=== PATIENT | female | born 1990 | race Two or more races ===

== ENCOUNTER 2019-04-20 21:40 | Emergency (ER) | payer OTHER ==
[2019-04-20 21:51] VITALS: BP 141/94
[2019-04-21] MEDS ORDERED: IBUPROFEN 600 MG TABLET PO ONE (00:20)
[2019-04-21] MEDS ORDERED: DIPH/PERTUSS(ACELL)/TETANUS VAC/PF 0.5 ML SYR (>=10YO) IM ONE (00:21)
[2019-04-21] MEDS ORDERED: ONDANSETRON 4 MG TAB.RAPDIS PO ONE (00:22)
--- NOTE | 2019-04-21 00:23 | ER Document Report ---
ED Medical Screen (RME) - General Chief Complaint: Laceration Stated Complaint: CUTS ON FOOT Time Seen by Provider: 04/21/19 00:10 Notes: Patient is a 28-year-old female who presents to the emergency department with a chief complaint of lacerations to the foot. Patient states that earlier tonight out of anger she kicked a empty fish tank that was on the floor. Patient states that this take did break causing multiple lacerations on the right foot. Patient states her tetanus shot is not up-to-date. TRAVEL OUTSIDE OF THE [place] IN LAST 30 DAYS: No Physical Exam - Vital signs Vitals: Temp Pulse Resp BP Pulse Ox 98.6 F 103 H 20 141/94 H 99 04/20/19 21:49 04/20/19 21:49 04/20/19 21:49 04/20/19 21:49 04/20/19 21:49 - Extremities Notes: 3 lacerations noted to the dorsal aspect of the right foot as well as the laceration to the lateral side of the foot. There is no active bleeding. The lacerations appear to be jagged and irregular. Course - Re-evaluation Re-evalutation: 04/21/19 00:23 Patient will require wound care and laceration repair. I have ordered an x-ray to rule out foreign body. I have greeted and performed a rapid initial assessment of this patient. A comprehensive ED assessment and evaluation of the patient, analysis of test results and completion of the medical decision making process will be conducted by additional ED providers. - Vital Signs Vital signs: Temp Pulse Resp BP Pulse Ox 98.6 F 103 H 20 141/94 H 99 04/20/19 21:49 04/20/19 21:49 04/20/19 21:49 04/20/19 21:49 04/20/19 21:49
--- NOTE | 2019-04-21 01:03 | RADIOLOGY REPORT (SQ) ---
EXAM DESCRIPTION: Right foot [facility]: XR FOOT 3 OR MORE VIEWS Views: 3 CLINICAL HISTORY: 28 years Female, r/o foreign body, kicked glass fish tank, + lacs COMPARISON: None. FINDINGS: External material somewhat obscures visualization. There are several possible foreign bodies on the oblique view and AP view, but these are not identified on the lateral view. Overall alignment is anatomic. No acute displaced fractures. On one view, there is questionable fracture at the dorsal medial margin of the 1st tarsal metatarsal joint, although this may be overlying material. IMPRESSION: 1. There are several potential foreign bodies, in or over the dorsal medial soft tissues. Consider repeat radiographs without the bandage material.
[2019-04-21] MEDS ORDERED: LIDOCAINE 1%/EPINEPHRINE INJ 20 ML VIAL INJ ONE (02:42)
[2019-04-21] MEDS ORDERED: DOXYCYCLINE HYCLATE 100 MG TABLET PO ONE (02:44)
--- NOTE | 2019-04-21 02:47 | ER Document Report ---
ED Wound - General Chief Complaint: Laceration Stated Complaint: CUTS ON FOOT Time Seen by Provider: 04/21/19 00:10 Primary Care Provider: SHIVAM GONZALEZ DO [Primary Care Provider] - Follow up as needed Notes: Patient is a 28-year-old female that comes to the emergency department for chief complaint of laceration to the right foot. She states that she became angry and kicked a fish tank, the tank shattered and she sustained lacerations to the top and side of the foot from the glass. Her tetanus is not up-to-date. She denies any other injuries or complaints. She drove herself here. She denies any daily medications or diagnosed medical history. She denies . TRAVEL OUTSIDE OF THE [place] IN LAST 30 DAYS: No - Related Data Allergies/Adverse Reactions: No Known Allergies Allergy (Unverified 04/21/19 00:22) Past Medical History - General Information source: Patient - Social History Smoking Status: Never Smoker Frequency of alcohol use: Social Drug Abuse: None Lives with: Family Family History: Reviewed & Not Pertinent Patient has suicidal ideation: No Patient has homicidal ideation: No Renal/ Medical History: Denies: Hx Peritoneal Dialysis - Immunizations Immunizations up to date: No Hx Diphtheria, Pertussis, Tetanus Vaccination: Yes Review of Systems - Review of Systems Constitutional: No symptoms reported EENT: No symptoms reported Cardiovascular: No symptoms reported Respiratory: No symptoms reported Gastrointestinal: No symptoms reported Genitourinary: No symptoms reported Female Genitourinary: No symptoms reported Musculoskeletal: See HPI Skin: See HPI Hematologic/Lymphatic: No symptoms reported Neurological/Psychological: No symptoms reported Physical Exam - Vital signs Vitals: Temp Pulse Resp BP Pulse Ox 98.6 F 103 H 20 141/94 H 99 04/20/19 21:49 04/20/19 21:49 04/20/19 21:49 04/20/19 21:49 04/20/19 21:49 - Notes Notes: GENERAL: Alert, interacts well. No acute distress. HEAD: Normocephalic, atraumatic. EYES: Pupils equal, round, and reactive to light. Extraocular movements intact. ENT: Oral mucosa moist, tongue midline. Oropharynx unremarkable. Airway patent. LUNGS: Clear to auscultation bilaterally, no wheezes, rales, or rhonchi. No respiratory distress. HEART: Regular rate and rhythm. No murmur ABDOMEN: Soft, non-tender. Non-distended. EXTREMITIES: There are 4 irregular lacerations over the dorsal aspect of the right foot towards the medial aspect. There is a 0.5 cm, 1 cm, 2 cm, and 2.5 cm laceration. Over the lateral aspect of the foot there is a small flap laceration as well. All lacerations are partial-thickness, range of motion of the foot intact, normal range of motion of the toes, normal capillary refill and sensation, normal foot exam otherwise. BACK: no cervical, thoracic, lumbar midline tenderness. No saddle anesthesia, normal distal neurovascular exam. NEUROLOGICAL: Alert and oriented x3. Normal speech. Cranial nerves II through XII grossly intact. PSYCH: Normal affect, normal mood. SKIN: Warm, dry, normal turgor. No rashes or lesions noted. Course - Re-evaluation Re-evalutation: X-ray showing multiple retained foreign bodies, no fracture. I irrigated the foot thoroughly after cleaning with surgical cleanser using normal saline. After irrigation I explored each wound. I could not find any foreign bodies in any of the wounds and the wounds were easily explored and visualized. These were visualized after lidocaine with epinephrine, there was no bleeding obstructing the view. I explained the patient that there were foreign bodies visualized on the x-ray although I could not find any. After discussion decision was made to closing the wounds, placed on doxycycline (she kicked a fish tank), and she can follow-up routinely with her mri ct tech that she already has or with general surgery if desired. Discussed wound care, follow-up, return precautions. Patient states understanding and agreement. - Vital Signs Vital signs: Temp Pulse Resp BP Pulse Ox 97.7 F 56 L 16 141/94 H 100 04/21/19 06:03 04/21/19 06:03 04/21/19 06:03 04/20/19 21:49 04/21/19 06:03 Procedures - Laceration/Wound Repair right foot #1 Wound length (cm): 0.5 Wound's Depth, Shape: Irregular, Flap Wound explored: Clean, No foreign body removed Irrigated w/ Saline (mLs): 40 Wound Repaired With: Sutures Suture Size/Type: 4:0, Nylon Number of Sutures: 1 Layer Closure?: No Post-procedure wound care: Sterile dressing applied Post-procedure NV exam normal: Yes Complications: No right foot #2 Wound length (cm): 1 Wound's Depth, Shape: Irregular Laceration pre-procedure: Sterile PPE donned, Sterile drapes applied, Shur-Clens applied Anesthetic type: 1% Lidocaine w/epi Volume Anesthetic (mLs): 2 Wound explored: Clean, No foreign body removed Irrigated w/ Saline (mLs): 40 Wound Repaired With: Sutures Suture Size/Type: 4:0 Number of Sutures: 2 Layer Closure?: No Post-procedure wound care: Sterile dressing applied Post-procedure NV exam normal: Yes Complications: No right foot #3 Wound length (cm): 2 Wound's Depth, Shape: Irregular, Flap Laceration pre-procedure: Sterile PPE donned, Sterile drapes applied, Shur-Clens applied Anesthetic type: 1% Lidocaine w/epi Volume Anesthetic (mLs): 3 Wound explored: Clean, No foreign body removed Irrigated w/ Saline (mLs): 40 Wound Repaired With: Sutures Suture Size/Type: 4:0, Nylon Number of Sutures: 4 Layer Closure?: No Post-procedure wound care: Sterile dressing applied Post-procedure NV exam normal: Yes Complications: No right foot #4 Wound length (cm): 2.5 Wound's Depth, Shape: Irregular, Flap Laceration pre-procedure: Sterile PPE donned, Sterile drapes applied, Shur-Clens applied Anesthetic type: 1% Lidocaine w/epi Volume Anesthetic (mLs): 3 Wound explored: Clean, No foreign body removed Irrigated w/ Saline (mLs): 40 Wound Repaired With: Sutures Suture Size/Type: 4:0, Nylon Number of Sutures: 5 Layer Closure?: No Post-procedure wound care: Sterile dressing applied Post-procedure NV exam normal: Yes Complications: No right lateral foot Wound length (cm): 1.5 Wound's Depth, Shape: Flap Laceration pre-procedure: Sterile PPE donned, Sterile drapes applied, Shur-Clens applied Anesthetic type: 1% Lidocaine w/epi Volume Anesthetic (mLs): 2 Wound explored: Clean, No foreign body removed Irrigated w/ Saline (mLs): 40 Wound Repaired With: Sutures Suture Size/Type: 4:0, Nylon Number of Sutures: 3 Post-procedure wound care: Sterile dressing applied Post-procedure NV exam normal: Yes Complications: No Discharge - Discharge Clinical Impression: Laceration of right foot Qualifiers: Encounter type: initial encounter Qualified Code(s): S91.311A - Laceration without foreign body, right foot, initial encounter Condition: Stable Disposition: HOME, SELF-CARE Additional Instructions: No fracture seen on x-ray. There were possible glass fragments, however on exploration these were not seen. There is a possibility there are pieces of retained glass, take antibiotics as prescribed to completion. This may work to the surface over time. You can follow-up with the surgical clinic referral or your mri ct tech if desired. Sutures need to be removed in approximately 7 days. Keep clean, clean with soap and water, dab dry. Avoid soaking or scrubbing. You can apply thin topical antibiotic dressings to the areas. Return if you worsen including developing redness, swelling, pain, discolored discharge, fever, or any other concerning symptoms. Prescriptions: Doxycycline Hyclate 100 mg PO BID 5 Days #10 capsule Forms: Return to Work Referrals: SHIVAM GONZALEZ, [Primary Care Provider] - Follow up as needed
[2019-04-21] MEDS ORDERED: HYDROCODONE/ACETAMINOPHEN 5-325 MG (6 TAB/ER DISP) PO PRN (05:11)
== END 2019-04-21 06:04 | disposition home or self-care (01) ==
LOC: ER 21:40
DX: S91.311A Laceration without foreign body, right foot, initial encounter (principal); W25.XXXA Contact with sharp glass, initial encounter
CPT/HCPCS: 99283; 90471; 73630; 90715; 12002; S0119; J3490